=== PATIENT | female | born 1930 | race Two or more races ===

== ENCOUNTER 2017-12-27 10:50 | Emergency (ER) | payer MEDICAID ==
[2017-12-27 11:37] LABS: % BASOPHILS 1.2 % (0.0-2.0); % EOSINOPHILS 3.2 % (0.0-5.0); % LYMPHOCYTES 14.8 % (20.0-50.0); % NEUTROPHILS 72.8 % (40.0-80.0); BASOPHILE ABSOLUTE 0.1 Th/cumm (0-0.2); EOSINOPHILE ABSOLUTE 0.3 Th/cmm (0.1-0.4); HEMATOCRIT 43.4 % (41.0-60); HEMOGLOBIN 14.4 gm/dL (12-16); LYMPHOCYTE ABSOLUTE 1.5 Th/cmm (1.5-3.0); MEAN CORPUSCULAR HEMOGLOBIN 30.1 pg (27.0-31.0); MEAN CORPUSCULAR HGB CONC 33.1 pg (28.0-36.0); MEAN PLATELET VOLUME 8.1 fl; MONOCYTE ABSOLUTE 0.8 Th/cmm (0.3-1.0); NEUTROPHILE ABSOLUTE 7.6 Th/cmm (1.8-8.0); PLATELET COUNT 232 Th/cmm (150-400); RED BLOOD COUNT 4.76 Mil/cmm (3.80-5.20); RED CELL DISTRIBUTION WIDTH 13.2 % (11.5-20.0); WHITE BLOOD COUNT 10.3 Th/cmm (4.8-10.8)
[2017-12-27 11:51] LABS: ANION GAP 12.3 (7.0-16.0); BUN - UREA NITROGEN 28 mg/dL (7-25); CALCIUM SERUM 9.5 mg/dL (8.6-10.3); CARBON DIOXIDE 25.6 mEq/L (21.0-31.0); CHLORIDE 100 mEq/L (98-107); GLUCOSE 107 mg/dL (70-105); POTASSIUM SERUM 3.9 mEq/L (3.5-5.1); SODIUM SERUM 134 mEq/L (136-145)
--- NOTE | 2017-12-27 16:34 | ER Physician Documentation ---
DATE OF SERVICE: 12/27/2017 ADDENDUM I looked at the x-ray of the sinuses. I did not find any bad findings in the sinuses. There is no evidence of any major sinusitis or collection of pus or a sinus filled with pus at all. Electrolytes showed sodium 134, potassium 3.9, chloride 100, CO2 25.6, anion gap is 12.3, glucose is 107, BUN is 28, creatinine is 1, BUN and creatinine ratio is 28, calcium is 9.5. The patient's white count is 10.3, hemoglobin 14.4, hematocrit is 43.4 and platelet count 232. FINAL DIAGNOSES: Mild sinusitis, upper respiratory tract infection, dizziness. Flu swabs, if it comes negative, the patient will be discharged home. To the best of my knowledge, the flu swabs should be negative. JOB# [id number]
--- NOTE | 2017-12-27 17:26 | ER Physician Documentation ---
DATE OF SERVICE: 12/27/2017 HISTORY OF PRESENT ILLNESS: This is an 87-year-old female patient who is having nasal congestion for past 2 weeks and some little vertigo and the patient is anuric and the patient feels like she has some sinus problems, some running nose and the patient was taking loratadine and one of the pill took 3 times a day given by her doctor, but did not help her and the patient came here for getting further treatment. HISTORY OF PRESENT ILLNESS: The patient has the symptoms for 1 week. She came here. She never had previous sinus infections or any other medical problems that she knows of. She does not have any hypertension. She has this dizziness and she has increased cholesterol and gastritis. The patient did not bring the list of the medications. The patient does not have any other symptoms as far as some congestion in the nose, slight ear pain, mild cough and some discharge from the left eye, but I did not see any discharge from the left eye. REVIEW OF SYSTEMS: EYES: No history of double vision, blurring or blindness. Did not see any particular discharge from the left eye. GI: No history of any nausea, vomiting, diarrhea, upper gastrointestinal tract infection, any Crohn's disease or any other liver disease, etc. ENDOCRINE: No history of diabetes, hypertension, hypothyroidism or Placedo syndrome. PULMONARY: No history of pneumonia, TB, pulmonary embolism, COPD, emphysema, bronchitis. CARDIAC: No history of chest pain, myocardial infarction, rheumatic fever, valvular disease, pericardial disease, cardiomyopathy. BONES AND JOINTS: No apparent complaints. CENTRAL NERVOUS SYSTEM: No history of TIA, stroke, encephalitis, meningitis. BLOOD: The patient does not have any blood disorders. HEMATOLOGY/ONCOLOGY: No history of anemia, polycythemia. No history of any bone marrow problem, leukemia and lymphoma, etc. The patient seems to be fine, came here with the daughter. FAMILY HISTORY: She is a mother of 8 children. She was in brought by the daughter who did not bring any medication. ALLERGIES: Include PENICILLIN. PHYSICAL EXAMINATION: GENERAL: The patient appears to be awake, alert, oriented, not in any acute cardiorespiratory distress. Overall appears to be normal. No evidence of any meningeal signs. HEENT: Conjunctivae pink. Sclerae white. HEENT is Normal. Slight discharge from the left eye; however, right now, I do not see much of discharge. For abscess, she might have been putting some drops, but will give her some eyedrops for that eye problem. ENT appears to be normal. EXTREMITIES: No edema, no cyanosis. SKIN: No petechia, no ecchymosis, no evidence of any meningeal signs. VITAL SIGNS: Shows temperature 98.8, pulse 110, respirations 17, blood pressure 110/71, oxygen saturation 98% with a height of 5 feet, weight of 123 pounds. LUNGS: Trachea is central. Fairly good air entry in both lungs, but few crackles are audible at both lung bases and they cleared up with coughing. They are not moist ____ congestive heart failure. Heart reveals normal heart sounds. Third heart sound is absent. No abnormal murmur, click or rub. CENTRAL NERVOUS SYSTEM: Normal. Edema is absent. The patient does not have any flu shot as of and wants to be checked for flu. We will check it out at this point. PAST SURGICAL HISTORY: Includes: 1. History of a hysterectomy. 2. x 1. FAMILY HISTORY: Shows the patient's mother's grandmother had hypertension. MEDICATIONS: The patient did not bring any. CLINICAL IMPRESSION: 1. The patient has dizziness, sinus congestion. Most likely, the patient has a sinusitis and probably labyrinthitis. 2. The patient probably having left eye conjunctivitis. 3. The patient has vertigo, most likely secondary to labyrinthitis. 4. Allergy to penicillin. 5. History of hysterectomy. 6. We will check out to see if the patient has any flu-like symptoms, but patient wanted this flu to be checked out, so we will check it out and will send the patient home after we get some lab workup done and if they found to be normal, then we will send the patient home on p.o. antibiotics and things for dizziness. We will give her some Antivert 25 mg 3 times a day and antibiotic in the form of Levaquin 500 mg daily for 5 days and TobraDex eye drops for eye congestion. After we get the x-ray, will send the patient home and after the lab comes back, will send the patient home if any nothing is positively found. JOB# [id number]
--- NOTE | 2017-12-28 09:18 | Diagnostic Imaging Report ---
CHEST X-RAY: AP view INDICATION: Pneumonia COMPARISON: None FINDINGS: Chronic lung changes are seen with no focal consolidation or effusions. Mild cardiomegaly is noted with atherosclerosis. Degenerative changes of the spine is both shoulders are noted. Old fracture deformity of the left shoulder is noted. Scoliosis is noted. IMPRESSION: Chronic lung changes with no focal consolidation identified. Mild cardiomegaly and atherosclerosis.
--- NOTE | 2017-12-28 09:28 | Diagnostic Imaging Report ---
Sinus series 3 views Indication: Pain rule out sinusitis Comparison: none Findings: Dental hardware is noted. The paranasal sinuses appear well-aerated. No air-fluid levels identified. The bilateral orbital floors are intact. No gross fracture identified. Impression: No x-ray evidence of acute sinusitis, correlate clinically. In the setting of trauma, if clinical symptoms persist and there is continued concern for an occult fracture, follow up exams in 5-7 days is suggested.
== END 2017-12-27 13:07 | disposition home or self-care (01) ==
LOC: ER 10:50
DX: J32.8 Other chronic sinusitis (principal); J06.9 Acute upper respiratory infection, unspecified; R42 Dizziness and giddiness
CPT/HCPCS: 36415-UA; 70220-TC; 71045-TC; 80048-TC; 85025-TC; Z7610

== ENCOUNTER 2019-05-30 21:21 | Emergency (ER) | payer MEDICARE, MEDICAID ==
--- NOTE | 2019-05-30 21:39 | ED Physician Chart ---
ED Chief Complaint/HPI - Patient Information Date Seen:: 05/30/19 Time Seen:: 21:37 Chief Complaint:: dizziness History of Present Illness:: 89 yr old female with dizziness no nv no sob no headache or neck pain Allergies:: Allergies Allergy/AdvReac Type Severity Reaction Status Date / Time Penicillins Allergy Verified 12/27/17 11:14 ED Review of Systems - Review of Systems General/Constitutional: No fever, No chills, No weight loss, No weakness, No diaphoresis, No edema, No loss of appetite Skin: No skin lesions, No rash, No bruising Head: No headache, No light-headedness Eyes: No loss of vision, No pain, No diplopia ENT: No earache, No nasal drainage, No sore throat, No tinnitus Neck: No neck pain, No swelling, No thyromegaly, No stiffness, No mass noted Cardio Vascular: No chest pain, No palpitations, No PND, No orthopnea, No edema Pulmonary: No SOB, No cough, No sputum, No wheezing GI: No nausea, No vomiting, No diarrhea, No pain, No melena, No hematochezia, No constipation, No hematemesis G/U: No dysuria, No frequency, No hematuria Musculoskeletal: No bone or joint pain, No back pain, No muscle pain Endocrine: No polyuria, No polydipsia Psychiatric: No prior psych history, No depression, No anxiety, No suicidal ideation Hematopoietic: No bruising, No lymphadenopathy Allergic/Immuno: No urticaria, No angioedema Neurological: No syncope, No focal symptoms, No weakness, No paresthesia, No headache, No seizure, Dizziness, No confusion, Vertigo ED Past Medical History - Past Medical History Past Medical History: HTN, Dyslipidemia Family Medical History - Family Member Mother Ethnicity: Living Status: Hx Family Hypertension: Yes ED Physical Exam - Physical Examination General/Constitutional: Awake, Well-developed, well-nourished, Alert, No distress, GCS 15, Non-toxic appearing, Ambulatory Head: Atraumatic Eyes: Lids, conjuctiva normal, PERRL, EOMI Skin: Nl inspection, No rash, No skin lesions, No ecchymosis, Well hydrated, No lymphadenopathy ENMT: External ears, nose nl, Nasal exam nl, Lips, teeth, gums nl Neck: Nontender, Full ROM w/o pain, No JVD, No nuchal rigidity, No bruit, No mass, No stridor Respiratory: Nl effort/Exclusion, Clear to Auscultation, No Wheeze/Rhonchi/Rales Cardio Vascular: RRR, No murmur, gallop, rubs, NL S1 S2 GI: No tenderness/rebounding/guarding, No organomegaly, No hernia, Normal BS's, Nondistended, No mass/bruits, No McBurney tenderness : No CVA tenderness Extremities: No tenderness or effusion, Full ROM, normal strength in all extremities, No edema, Normal digits & nails Neuro/Psych: Alert/oriented, DTR's symmetric, Normal sensory exam, Normal motor strength, Judgement/insight normal, Mood normal, Normal gait, No focal deficits Misc: Normal back, No paraspinal tenderness ED Assessment - Assessment General Assessment: dizziness ED Septic Shock - . Is Septic Shock (SBP<90, OR Lactate>4 mmol\L) present?: No ED Reassessment (Disposition) - Reassessment Reassessment:: dizziness - Diagnosis Diagnosis:: as above - Patient Disposition Discharge/Transfer:: Home Condition at Disposition:: Stable
[2019-05-30 22:03] LABS: % BASOPHILS 0.5 % (0.0-2.0); % EOSINOPHILS 5.9 % (0.0-5.0); % LYMPHOCYTES 26.1 % (20.0-50.0); % NEUTROPHILS 57.5 % (40.0-80.0); EOSINOPHILE ABSOLUTE 0.5 Th/cmm (0.1-0.4); HEMATOCRIT 35.4 % (41.0-60); HEMOGLOBIN 12.4 gm/dL (12-16); LYMPHOCYTE ABSOLUTE 2.2 Th/cmm (1.5-3.0); MEAN CORPUSCULAR HGB CONC 35.2 pg (28.0-36.0); MONOCYTE ABSOLUTE 0.9 Th/cmm (0.3-1.0); NEUTROPHILE ABSOLUTE 4.9 Th/cmm (1.8-8.0); PLATELET COUNT 216 Th/cmm (150-400); RED BLOOD COUNT 3.89 Mil/cmm (3.80-5.20); RED CELL DISTRIBUTION WIDTH 13.3 % (11.5-20.0); WHITE BLOOD COUNT 8.5 Th/cmm (4.8-10.8)
[2019-05-30 22:21] LABS: ALB/GLOB RATIO 1.3 (1.0-1.8); ALKALINE PHOSPHATASE 50 U/L (34-104); ANION GAP 12.8 (7.0-16.0); BILIRUBIN,TOTAL 0.6 mg/dL (0.3-1.0); BUN - UREA NITROGEN 36 mg/dL (7-25); CALCIUM SERUM 9.2 mg/dL (8.6-10.3); CHLORIDE 103 mEq/L (98-107); GLUCOSE 94 mg/dL (70-105); POTASSIUM SERUM 3.8 mEq/L (3.5-5.1); SGOT 20 U/L (13-39); SGPT/ALT 13 U/L (7-52); SODIUM SERUM 137 mEq/L (136-145); TOTAL PROTEIN,SERUM 7.2 gm/dL (6.0-8.3)
[2019-05-30 22:41] LABS: URINE SOURCE CLEAN C
[2019-05-30 22:58] LABS: URINE BILIRUBIN NEGATIVE (NEGATIVE); URINE BLOOD TRACE (NEGATIVE); URINE GLUCOSE (UA) NEGATIVE (NEGATIVE); URINE KETONE NEGATIVE (NEGATIVE); URINE LEUKOCYTE ESTERASE TRACE (NEGATIVE); URINE MICROSCOPIC INDICATED? YES; URINE NITRATE NEGATIVE (NEGATIVE); URINE PROTEIN NEGATIVE (NEGATIVE); URINE UROBILINOGEN 0.2 E.U./dL (0.2 - 1.0)
[2019-05-30 23:03] LABS: URINE CLARITY CLEAR (CLEAR); URINE COLOR YELLOW
[2019-05-30 23:18] LABS: URINE BACTERIA NONE SEEN /hpf (NONE SEEN); URINE EPITHELIAL CELLS OCCASIONAL /lpf (FEW); URINE RBC NONE SEEN /hpf (0-5)
--- NOTE | 2019-05-31 09:01 | Diagnostic Imaging Report ---
CT scan of the brain without intravenous contrast HISTORY: Dizziness Total DLP equals 568 CTDI equals 33.9 Axial sections were obtained from the base of the skull to the vertex. There is prominence/enlargement of the ventricular system size. Associated enlargement of cerebral sulci and subarachnoid cisterns. Findings are consistent with changes of generalized cerebral atrophy. No acute parenchymal abnormalities. No acute cerebral hemorrhage. Hypodensity is seen within the supratentorial white matter regions without mass effect. The findings may be associated with chronic small vessel ischemic disease. No extra-axial masses or abnormal fluid collections. IMPRESSION: 1. No acute abnormalities 2. Cerebral atrophy 3. Supratentorial white matter changes that may reflect chronic small vessel ischemic disease
== END 2019-05-31 00:16 | disposition home or self-care (01) ==
LOC: ER 21:21
DX: R42 Dizziness and giddiness (principal); I10 Essential (primary) hypertension; E78.5 Hyperlipidemia, unspecified; Z88.0 Allergy status to penicillin
CPT/HCPCS: 36415-UA; 70450-TC; 80053-TC; 81001-TC; 84484-TC; 85025-TC; 93005